=== PATIENT | female | born 1975 ===

== ENCOUNTER 2017-02-17 11:00 | Inpatient (IN) | payer SELFPAY ==
[~2017-02-17] VITALS: Ht 162.6 cm; Wt 81.0 kg
--- NOTE | ~2017-02-17 | HP ---
PATIENT'S NAME: LILIBETH CIFUENTES [facility] AGE: 41 Y [address] ROOM: [id number] [place], [place] [address] LOCATION: [facility] ADMIT DATE: 02/17/2017 History & Physical DISCHARGE DATE: FAMILY PHYSICIAN: PHYSICIAN, UNKNOWN ATTENDING PHYSICIAN: AMY SMITH DATE OF SERVICE: HISTORY OF PRESENT ILLNESS: This is a 41-year-old female with no past medical history per patient, who does not take any medications, who is a transfer from another facility, [facility], with altered mental status there. There, she was apparently found down by her roommate this morning with decreased responsiveness. She was found down on the floor face down with an eye laceration and unresponsive. She was breathing and had a pulse, just not responsive. EMS reportedly initially had blood pressure of 80 systolic and heart rate of 140s. They noted unequal pupils in the helicopter with concern for a stroke. Upon arrival at [facility], the patient's vitals improved with heart rate of 80s to 90s, blood pressure was better at 120s/70s. She was lethargic, snoring respirations, but would open her eyes to command and moving all extremities. They did a urine drug screen that came back positive for benzodiazepine and TCA, so flumazenil was given twice and the patient became much more responsive and became very agitated and so Haldol was given; however, she was found to be hypothermic with temperature of 89 and she required a warming blanket, a Kristin Hugger. A CT head was done including a CT facial bones and a CT cervical spine and a chest x-ray was done, which was all within normal limits. A UA was also done, which did not show any bacteria, negative nitrite, negative leukocytes, negative wbc. At the time of my examination, the patient is sleeping, drowsy, but wakes up to questions. She is oriented to time, place, and person. She states that she only took Tylenol PM last night. She left the house, but does not remember exactly what happened. An EKG was also done there, I do not have the EKG here, however, from sign-out that her EKG appears to be within normal limits, only mild prolongation of the QTc. Again, she denies any drug abuse. She states that she only took Tylenol PM last night. She states that she just left the house and she felt like she fell forward. Otherwise, she has some pain on the left eye, but denies any fevers, chills, shortness of breath, chest pain, nausea, vomiting, bowel or urinary changes. No abdominal pain as such. REVIEW OF SYSTEMS: Negative as per HPI. PAST MEDICAL HISTORY: No past medical history. PATIENT'S NAME: LILIBETH CIFUENTES [facility] AGE: 41 Y [address] [id number] [address] LOCATION: [facility] ADMIT DATE: 02/17/2017 History & Physical DISCHARGE DATE: FAMILY PHYSICIAN: PHYSICIAN, UNKNOWN ATTENDING PHYSICIAN: AMY SMITH MEDICATIONS: The patient states that she does not take any medications. FAMILY HISTORY: The patient states that she has unknown family history. SOCIAL HISTORY: The patient states that she does not drink any alcohol. She does state that she does smoke. ALLERGIES: SHE HAS NO KNOWN ALLERGIES. PHYSICAL EXAMINATION: VITAL SIGNS: The patient's temperature here is 97.2, pulse is 88, blood pressure 130s/80s, and saturating 96% on room air. GENERAL: Again, the patient is alert, she is drowsy, she is irritable when she is awake. She is otherwise in no acute distress. She is oriented to time, place, and person, you just need to wake her up. LUNGS: Lung sounds are diminished due to body habitus. No crackles, no wheezing present. HEART: Regular rate and rhythm and heart sounds. No murmurs. No rubs. ABDOMEN: Nontender. No guarding. No rigidity. No organomegaly. No pedal edema bilaterally. SKIN: There is some bruising on the left eye orbital area and there are also bilateral knee bruises present. NEUROLOGICAL: Again, she is oriented to time, place, and person. She is just very drowsy. She is grossly moving all extremities. PSYCHIATRIC: Unable to make decisions at this time. LABORATORY DATA: An alcohol level was not obtained at [facility], however, her TCA and benzo is positive in her urine. Her UA is negative for any bacteria, leukocyte, nitrites, or wbc. She has a CT head, CT facial maxilla, and also cervical spine and a chest x-ray, that was all negative. She has a mildly elevated D- dimer at 0.61. She has a mildly elevated CK-MB at 6.1, but she also has mildly elevated CK at 354. Acetaminophen level is negative. I do not see an EKG here, but per sign-out, that she has only mildly elevated QTc; otherwise, the rest of her CBC and CMP is benign. ASSESSMENT AND PLAN: 1. Acute encephalopathy could be secondary to benzodiazepine and TCA overdose, although, the patient denies. 2. Hypothermia, appears to be resolving. She is currently not on a bear hugger and her temperature is 97.2. PATIENT'S NAME: LILIBETH CIFUENTES [facility] AGE: 41 Y [address] ROOM: [place] [address] LOCATION: [facility] ADMIT DATE: 02/17/2017 History & Physical DISCHARGE DATE: FAMILY PHYSICIAN: PHYSICIAN, UNKNOWN ATTENDING PHYSICIAN: AMY SMITH 3. Left facial bruising and multiple bruises on the knees. Could be that she fell, however, all her CT scans are negative. 4. Mild elevated D-dimer. she is on room air. She is not tachypneic. She does not have any fevers. This could be just from her fall. We will obtain a venous duplex of bilateral extremities and rule this out. We will hydrate her with normal saline and D5 at 100 mL an hour. We will repeat an EKG to see if there is any worsening prolongation of QTc. We will obtain venous duplex of bilateral lower extremity. We will consult Psych when she is awake. Consult PT/OT. We will obtain an alcohol level and salicylate level. We will repeat a CBC and CMP in the morning. MD NICKO GUADARRAMA/amado /[id number] P D: [id number] T: [id number] HISTORY & PHYSICAL
--- NOTE | ~2017-02-17 | CON ---
PATIENT'S NAME: MAC CIFUENTES [facility] AGE: 41 Y [address] ROOM: [id number] [place], [place] [address] LOCATION: GICU ADMIT DATE: 02/17/2017 Consultation DISCHARGE DATE: FAMILY PHYSICIAN: PHYSICIAN, UNKNOWN ATTENDING PHYSICIAN: AMY SMITH DATE OF CONSULTATION: 02/18/2017 PSYCHIATRY CONSULTATION IDENTIFYING INFORMATION/REASON FOR CONSULTATION: Mac is a 41-year-old, white female, admitted to [facility] as a transfer from [place], admitted to us in altered mental status, and also suffered a fall subsequent to overdose on multiple medications. She has been medically stabilized. A QTc prolongation was noted. Imaging so far has not revealed any fractures or acute changes. CHIEF COMPLAINT: "I do not have anywhere to go." HISTORY OF PRESENT ILLNESS: Mac was evaluated. Visible swelling was noted on the face, not the most cooperative, but at the same time alert and oriented. Told me that her whereabouts which were correct. States that she has no prior history of any mental health treatment, but later contradicted herself by saying that she had overdosed on pills 2 years ago and "I was in a coma." About the incident had at this time, states that she has been living at [place] in [place] with Niles, who was a automobile radiator mechanic for the last 10 years. States that relationship was not going well. When asked about what does she recall about the overdose, states that she was by herself this past . It was on the afternoon and that was when she started taking those pills. I asked what did she take and responded "a little bit of this and little of that." States that the pills belonged to Niles and at that time, the intention was to end her life. States that she did not have anywhere to go. Has not been able to talk to Niles since then and made it sound like that the relationship in her opinion was completely done. Does not have any where else to go that she can think of. States that her father lives in [place] and then getting visibly agitated and overwhelmed, when pushed for more details. States that she does not want to end her life at this time. However acknowledged that when she is overwhelmed and frustrated that is where she looses control. Kept on repeating the intention was "as I did not have a place to go." States that she is doing well over here and does not want to go PATIENT'S NAME: MAC CIFUENTES [facility] AGE: 41 Y [address] ROOM: [id number] [place], [place] [address] LOCATION: GICU ADMIT DATE: 02/17/2017 Consultation DISCHARGE DATE: FAMILY PHYSICIAN: PHYSICIAN, UNKNOWN ATTENDING PHYSICIAN: AMY SMITH to inpatient facility for stabilization. Acknowledges that she does not have any plan or place to go which itself would be a trigger for her to repeat her actions. Not able to participate in a reasonable and the rationale way. PSYCHIATRIC HISTORY: Declines. MEDICAL HISTORY: No known medical history. Admitted status post multiple times on drug overdose. Had a fall and suffered soft-tissue injuries. Also history of being in a "coma" subsequent to when overdosed 2 years ago. PERSONAL SOCIAL HISTORY: Originally born in [place], [place]. States that she has been living with Niles who is a automobile radiator mechanic in the [place] for the last 10 years. Herself does not work. Talked about father being in [place], having another sister, but she is also not a resource at this time. MENTAL STATUS EXAMINATION: Lying in her bed. Physically uncomfortable. Talking about having some pain when touching her face, some visible swelling. Facial discoloration was noted. Able to understand questions and gave responses, but not the most elaborate, short and irritable. Aware that she was in [place] and that she came here yesterday. Able to tell me what the circumstances around the overdose that she had been asked by Niles to pack her bags and leave and she did not have any place to go at that time. States that the intent at that time was to end her life. Declines that now, but at the same time not able to problem solve. Acknowledges that she has nowhere to go and that she will go "somewhere." Fixated that she needs to go and get her stuff back from [place]. Denies any suicidal harm or intent. However, not processing the information in a well informed or a rationale way. Judgment and insight are clouded. DIAGNOSES: 1. Acute stress reaction. 2. Status post multiple drug overdoses. ASSESSMENT AND PLAN: At this time, it might be a day before she is medically cleared. Given the information that we have available, the clinical status, we recommend that she be transferred to [facility] after she is medically stable for further evaluation. Does have a history of serious overdose by her own account. Also not the most rationale and how she is processing the situation. Obviously engaged in something quite serious and the stressor which apparently was a trigger remained unresolved. States that at this time to her PATIENT'S NAME: MAC CIFUENTES [facility] AGE: 41 Y [address] ROOM: [id number] [place] [address] LOCATION: [facility] ADMIT DATE: 02/17/2017 Consultation DISCHARGE DATE: FAMILY PHYSICIAN: PHYSICIAN, UNKNOWN ATTENDING PHYSICIAN: AMY SMITH understanding she has no where to go which itself would put her at higher risk of repeating something like that. Would recommend that we consider her for EPC if she refuses to go to [facility] voluntarily, however, understands that the clinical status and the living situation might change once she is able to contact her significant other. Please call with concerns over here, but there were no behavioral problems and she is overall compliant with what we want her to be doing. MD MIGUEL KRISHNA/amado /[id number] d: [id number]/18/[id number] t: 02/21/17 1510, CONSULTATION REPORT
--- NOTE | ~2017-02-17 | ENPV ---
Vascular Lower Extremities DVT Study Procedure Demographics Patient Name LILIBETH CIFUENTES Date of Study 02/17/2017 Patient Number [id number] Gender Female Date of 1975 Age 41 Visit Number [id number] Height Accession Number [id number] Weight Room Number G6230 BSA BMI Referring Interpreting Lorna Saavedra MD Physician Physician Physician Ordering Physician Saloni Sheldon MD Straightening Machine Operator Heat Treatment Technician Dex Cook BS, RT Conclusions Summary TECHNIQUE: The veins of the lower extremities on the right and the left were evaluated from the groin to the ankle using trotter scale, compression, and augmentation. Venous hemodynamics were evaluated with color flow and spectral Doppler. FINDINGS: The deep veins of the legs bilaterally show normal color flow and compressibility without thrombosis. IMPRESSION: NEGATIVE BILATERAL LOWER EXTREMITY VENOUS DOPPLER. Procedure Type of Study: Veins:Lower Extremities DVT Study, Venous Duplex Lower Extremity Bilateral. Indications for Study:Swelling. Additional Indications:Hypothermia Appropriate Use Criteria:9 Patient Status:Routine. Study Location:Inpatient Portable. Technical Quality:Adequate visualization. Velocities are measured in cm/s ; Diameters are measured in cm Right Lower Extremities DVT Study Measurements Right 2D and Doppler Measurements + + + + +------+------+ + !Location !Visualized!Compressibility!Thrombosis!Signal!Reflux!Reflux ! ! ! ! ! ! ! !(sec) ! + + + + +------+------+ + !GSV Thigh !Yes !Yes !None !Phasic!No ! ! + + + + +------+------+ + !Common !Yes !Yes !None !Phasic!No ! ! !Femoral ! ! ! ! ! ! ! + + + + +------+------+ + !Prox !Yes !Yes !None !Phasic!No ! ! !Femoral ! ! ! ! ! ! ! + + + + +------+------+ + !Mid Femoral!Yes !Yes !None !Phasic!No ! ! + + + + +------+------+ + !Dist !Yes !Yes !None !Phasic!No ! ! !Femoral ! ! ! ! ! ! ! + + + + +------+------+ + !Popliteal !Yes !Yes !None !Phasic!No ! ! + + + + +------+------+ + !Gastroc !Yes !Yes !None !Phasic!No ! ! + + + + +------+------+ + !PTV !Yes !Yes !None !Phasic!No ! ! + + + + +------+------+ + !Peroneal !Yes !Yes !None !Phasic!No ! ! + + + + +------+------+ + Left Lower Extremities DVT Study Measurements Left 2D and Doppler Measurements + + + + +------+------+ + !Location !Visualized!Compressibility!Thrombosis!Signal!Reflux!Reflux ! ! ! ! ! ! ! !(sec) ! + + + + +------+------+ + !GSV Thigh !Yes !Yes !None !Phasic!No ! ! + + + + +------+------+ + !Common !Yes !Yes !None !Phasic!No ! ! !Femoral ! ! ! ! ! ! ! + + + + +------+------+ + !Prox !Yes !Yes !None !Phasic!No ! ! !Femoral ! ! ! ! ! ! ! + + + + +------+------+ + !Mid Femoral!Yes !Yes !None !Phasic!No ! ! + + + + +------+------+ + !Dist !Yes !Yes !None !Phasic!No ! ! !Femoral ! ! ! ! ! ! ! + + + + +------+------+ + !Popliteal !Yes !Yes !None !Phasic!No ! ! + + + + +------+------+ + !Gastroc !Yes !Yes !None !Phasic!No ! ! + + + + +------+------+ + !PTV !Yes !Yes !None !Phasic!No ! ! + + + + +------+------+ + !Peroneal !Yes !Yes !None !Phasic!No ! ! + + + + +------+------+ + Signature dtt: Abhijit Rothman dtd: 02/17/17 1538 Physician Self Edit
--- NOTE | ~2017-02-17 | DS ---
PATIENT'S NAME: LILIBETH CIFUENTES [facility] AGE: 41 Y [address] ROOM: [place] [address] LOCATION: [facility] [facility] ADMIT DATE: 02/17/2017 Discharge Summary DISCHARGE DATE: 02/19/2017 FAMILY PHYSICIAN: Physician, Unknown ATTENDING PHYSICIAN: Monalisa Guallpa ADMITTING DIAGNOSIS: Drug overdose. DISCHARGE DIAGNOSIS: Acute encephalopathy, secondary to drug overdose. SECONDARY DIAGNOSES: 1. Depression. 2. Possible suicidal attempt. 3. Hypertension. 4. Urinary tract infection. CONSULTATION: Psychiatry. HISTORY OF PRESENT ILLNESS: The patient is a 41-year-old female with no past medical history who was not on any medication and was transferred from another facility in [facility] with altered mental status. There, the patient was found by her roommate in the morning with decreased responsiveness. She was found down on the floor face down with eye laceration and unresponsiveness. She was breathing and had bowels. EMS was called. Initially, blood pressure was in the 80s and heart rates in the 140s. Upon arrival, assessment of the patient's vital signs improved with heart rate in the 80s and blood pressure to the 120s/70s. She was lethargic, snoring, no issues with respirations, would not open eyes to command, and moving all extremities. Urine drug screen was done and shows positive for benzodiazepine and TCA. Flumazenil was given twice and the patient became more responsive and became agitated and so Haldol was given. CT head done including CT facial bones and cervical spine and chest x-ray was done, which was unremarkable. The patient was transferred here for further care. HOSPITAL COURSE: The patient was admitted and was followed clinically. Serial EKG was done to monitor QTc and QRS. The patient mentation improved during her stay. On further investigation, the patient reports she took a few pills and were hesitant to answer whether this was to actually harm herself. Psychiatrist was called and the patient was evaluated and it was recommended to transfer the patient to [facility] for further workup of depression. CONDITION: Stable. DISPOSITION: [facility]. PATIENT'S NAME: LILIBETH CIFUENTES [facility] AGE: 41 Y [address] ROOM: [place] [address] LOCATION: [facility] [facility] ADMIT DATE: 02/17/2017 Discharge Summary DISCHARGE DATE: 02/19/2017 FAMILY PHYSICIAN: Physician, Unknown ATTENDING PHYSICIAN: Monalisa Guallpa DISCHARGE MEDICATIONS: 1. Levaquin 500 mg once a day for 3 days for UTI. 2. Amlodipine 5 mg everyday for hypertension. FOLLOWUP: Follow up care in [facility]. PHYSICAL EXAMINATION: VITAL SIGNS: Stable. HEAD: Normocephalic, atraumatic. CHEST: Clear to auscultation bilaterally. HEART: Regular rate and rhythm. No murmurs, rubs, or gallops. ABDOMEN: Soft and nondistended. Bowel sounds present. SALESPERSON HOSIERY: The patient is alert and oriented x3. Motor and sensory grossly intact. Less than 30 minutes was spent on discharge planning. DAGMAWE MD FARIDEH MARCOS/amado /[id number] d: 02/20/17 0039 t: 02/20/17 0941, DISCHARGE SUMMARY
--- NOTE | ~2017-02-17 | HP ---
PATIENT'S NAME: LILIBETH CIFUENTES [facility] AGE: 41 Y [address] ROOM: [address] [address] LOCATION: [facility] ADMIT DATE: 02/17/2017 History & Physical DISCHARGE DATE: FAMILY PHYSICIAN: PHYSICIAN, UNKNOWN ATTENDING PHYSICIAN: AMY SMITH DATE OF SERVICE: ADDENDUM ASSESSMENT AND PLAN: We will hydrate her with normal saline and D5 at 100 mL an hour. We will repeat an EKG to see if there is any worsening prolongation of QTc. We will obtain venous duplex of bilateral lower extremity. We will consult Psych when she is awake. Consult PT/OT. We will obtain an alcohol level and salicylate level. We will repeat a CBC and CMP in the morning. MD NICKO GUADARRAMA/amado /[id number] D: [id number] T: [id number] HISTORY & PHYSICAL
--- NOTE | 2017-02-17 14:27 | NUR ---
Patient is 41 yo female admitted from [facility] after she was found in the street face down. patient has 3 saline locks, one in each antecubital space and one in right inner wrist. all 3 are without erythema or edema noted at sites. patient is difficult to get any history from. she is groggy, will open eyes to name, try to answer but is difficulty to understand. when questions are re-asked of her she gets upset, but is easier understood. Education is not given at this time due to patient condition. pneumatics are on bilat calves. pt valeri well. yellow socks are on patient. call light is within reach.
[2017-02-17 16:06] LABS: HEMATOCRIT 37.2 % (33.0-46.0); HEMOGLOBIN 12.2 g/dL (10.0-15.0); MCH 31.5 pg (27.0-34.0); MCHC 32.8 gm/dL (32.0-36.5); MCV 96.1 fl (83.0-98.0); MPV 11.6 fl (9.4-12.4); RBC 3.87 M/uL (3.50-5.50); RDW-CV 14.4 % (11.9-14.6); WBC 7.7 K/uL (4.0-11.0)
[2017-02-17 16:25] LABS: ALBUMIN 2.8 gm/dL (3.5-5.0); ALK PHOS 40 IU/L (33-138); ALT 22 IU/L (12-78); AST 40 IU/L (10-40); BLOOD UREA NITROGEN 8 mg/dL (6-24); CALCIUM 7.8 mg/dL (8.5-10.5); CO2 19 mMol/L (22-32); CREATININE 0.5 mg/dL (0.5-1.1); MAGNESIUM 1.7 mg/dL (1.8-2.6); POTASSIUM 3.6 mMol/L (3.7-5.1); TOTAL BILIRUBIN 0.2 mg/dL (0.0-1.5); TOTAL PROTEIN 5.5 g/dL (6.0-8.4)
[2017-02-17 16:26] LABS: ANION GAP 9.6 (10.0-19.0); CHLORIDE 123 mMol/L (96-110); PHOSPHORUS 1.5 mg/dL (2.5-4.9); SODIUM 148 mMol/L (135-145)
--- NOTE | 2017-02-17 16:50 | NUR ---
Significant Event: PATIENT ARRIVED AT 1340 FROM [place], [place]. UPON ARRIVAL SHE IS VERY DROWSY BUT IRRITABLE. UNCOOPERATIVE AT TIMES. WHEN ASKED HER NAME SHE SAID WHY DO YOU NEED TO KNOW. SHE DID TELL ME SHE WAS FROM [place]. ON LAST ASSESSMENT PATIENT IS ALERT TO NAME AND MONTH. SHE DOES FOLLOW COMMANDS. MODERATE AND EQUAL STRENGTH. LEFT FOOT LOOKS LIKE FOOT DROP. TINGLING TO LOWER EXTREMITIES. VSS STABLE UPON ARRIVAL. TEMP WAS 97.4 AX BUT LAST WAS 98.7. PUPILS ARE 4MM BRISK. LUNGS CLEAR AND DIM ON ROOM AIR. ETCO2 MONITOR ON. UNABLE TO OBTAIN LAST BM. IS NOT REALLY ABLE TO TELL US MUCH HISTORY OR HER MEDS, SO THIS WILL NEED FOLLOWED UP ON WHEN MORE AWAKE. DENIES PAIN. FISHER INTACT DRAINING YELLOW URINE. PT/OT ORDER. I DID TRY CALLING DR SMITH TO REPORT EKG RESULTS AND ASK ABOUT A DIET. I AM WAITING HER TO CALL BACK. ALARMS ON FOR SAFETY. Follow up: NEURO STATUS. TEMP. FOLLOW UP ON ADMISSION THINGS.
[2017-02-17 17:37] LABS: PLATELET COUNT 86 K/uL (150-450)
[2017-02-17 17:39] LABS: ABSOLUTE NEUTROPHIL CT (ANC) 7.3 K/uL (1.8-7.8); BANDED NEUTROPHIL # 0.8 K/uL (0.0-0.1); BANDED NEUTROPHILS % 10 %; LYMPHOCYTE # 0.2 K/uL (0.8-4.0); LYMPHOCYTE % 3 %; MONOCYTE # 0.2 K/uL (0.0-1.0); SEGMENTED NEUTROPHIL # 6.6 K/uL (1.8-7.8); SEGMENTED NEUTROPHIL % 85 %
[2017-02-18 06:06] LABS: BASOPHIL % 0.4 %; EOSINOPHIL # 0.1 K/uL (0.0-0.5); EOSINOPHIL % 0.8 %; HEMATOCRIT 35.3 % (33.0-46.0); HEMOGLOBIN 11.2 g/dL (10.0-15.0); IMMATURE GRANULOCYTE % 0.3 %; LYMPHOCYTE # 1.1 K/uL (0.8-4.0); LYMPHOCYTE % 12.1 %; MCH 30.9 pg (27.0-34.0); MCHC 31.7 gm/dL (32.0-36.5); MCV 97.2 fl (83.0-98.0); MONOCYTE # 0.4 K/uL (0.0-1.0); MONOCYTE % 4.3 %; MPV 12.1 fl (9.4-12.4); NEUTROPHIL # (ANC) 7.5 K/uL (1.8-7.8); NEUTROPHIL % 82.1 %; NRBC % 0 /100WBC (0-0.00); RBC 3.63 M/uL (3.50-5.50); WBC 9.1 K/uL (4.0-11.0)
[2017-02-18 06:20] LABS: PLATELET COUNT 161 K/uL (150-450)
[2017-02-18 06:30] LABS: ALBUMIN 2.6 gm/dL (3.5-5.0); ALK PHOS 38 IU/L (33-138); ALT 22 IU/L (12-78); AST 39 IU/L (10-40); BLOOD UREA NITROGEN 7 mg/dL (6-24); CO2 19 mMol/L (22-32); POTASSIUM 3.2 mMol/L (3.7-5.1); TOTAL PROTEIN 5.3 g/dL (6.0-8.4)
[2017-02-18 06:31] LABS: ANION GAP 11.2 (10.0-19.0); CALCIUM 7.4 mg/dL (8.5-10.5); CHLORIDE 120 mMol/L (96-110); CREATININE 0.8 mg/dL (0.5-1.1); SODIUM 147 mMol/L (135-145)
[2017-02-18 06:32] LABS: TOTAL BILIRUBIN 0.3 mg/dL (0.0-1.5)
--- NOTE | 2017-02-18 06:35 | NUR ---
Significant Event: A/Ox3 throughout shift. Follows commands. Was drowsy on first assessment but alert the rest of the shift. Moderate strength throughout extremities. Activity as tolerated. Chanel catheter patent with 400ml output and concentrated urine. D51/2 NS at 100ml/hr through L)AC. Patient has c/o being very thirsty this shift. 900ml intake of water. Patient denies taking any home medications at home and denies any health problems. Temperatures stable throughout the night and overall patient has been calm and cooperative. Follow up:
--- NOTE | 2017-02-18 09:33 | NUR ---
PT SEEN D/T (+) MST. NO UNINTENDED WT LOSS. BME IN OBESE RANGE. NO NUTRITION-RELATED DX IDENTIFIED. WILL ASSIST NEEDED.
--- NOTE | 2017-02-18 18:12 | NUR ---
Significant Event: DROWSY, AWAKENS EASILY. ORIENTED X3. VSS, AFEBRILE, ROOM AIR. UP TO CHAIR WITH THERAPY, SLIGHTLY UNSTEADY. FISHER WITH 600 OUTPUT. GAVE PO & IV POTASSIUM AND IV MAGNESIUM, 2 EKGs DONE. IV SL. Follow up: PLANS TO INITIATE 1:1 RADIOLOGY ASSISTANT SUPERVISION. [facility] WILL HOLD BED FOR TRANSFER TOMORROW, PSYCH RECOMMENDS EPC IF PT NOT WILLING TO TRANSFER VOLUNTARILY.
--- NOTE | 2017-02-19 07:34 | NUR ---
Significant Event: The patient is Alert and Oriented x3. Denies Numbness and Tingling. Moves all extremities spontaneously and to command. Up with SBA, Gaitbelt. Upper extremities weak, lower extremities moderate strength. Chanel D'Cd, voiding post removal. Abrasions/bruising to all extremities. Bilateral eyes are swollen and crusty. PIV to the Left AC and Right Wrist saline locked. No complaints of pain. VSS. On room air. Decreased appetite. 1:1 sitter. Follow up: Transfer to [facility]?
[2017-02-19 10:52] LABS: BILIRUBIN URINE NEGATIVE (NEGATIVE); BLOOD URINE 50 /UL (NEGATIVE); COLOR URINE YELLOW (YELLOW); GLUCOSE URINE NEGATIVE (NEGATIVE); KETONE URINE 5 mg/dL (NEGATIVE); LEUKOCYTES URINE 25 /UL (NEGATIVE); NITRITE URINE NEGATIVE (NEGATIVE); PROTEIN URINE NEGATIVE (NEGATIVE); TURBIDITY URINE 2+ (CLEAR); UROBILINOGEN URINE 1 mg/dL (NORMAL)
[2017-02-19 11:02] LABS: AMORPHOUS URINE 2+ (NEGATIVE); BACTERIA URINE NEGATIVE (NEGATIVE); EPITHELIAL URINE 0-2 #/HPF (NEGATIVE); RBC URINE RARE #/HPF (NEGATIVE)
--- NOTE | 2017-02-19 13:06 | NUR ---
Significant Event: Patient alert and oriented X 3. Room air. SBP 170's and 150's. HR 80's and 60's. 1:1 sitter. Patient showered this shift. Retaining urine bladder scan read 589. Straight cathed and eliminated 200 ml. Up walking in the hallway with aide. Edema to orbital and abraision to upper right eyebrow. Abraisions to knees. Peripheral IV to L/AC flushes well with good blood return. Peripheral IV to R/forearm, flushes well with no blood return. Pleasant and cooperative with cares. Follow up:
[2017-02-19] MEDS ORDERED: NORVASC5 MG PO (15:03)
[2017-02-19] MEDS ORDERED: LEVAQUIN500 MG PO (15:03)
--- NOTE | 2017-02-19 15:22 | NUR ---
Patient discharged to [facility] via ambulance, discharge instructions given to patient and patient verbalized understanding of new medications and instructions. Report called by Liv Hutchinson.
== END 2017-02-19 15:18 | DRG 917 ==
LOC: GICU 13:35
PROVIDERS: Internal Medicine; ADMIT Hospitalist
DX: T42.4X2A Poisoning by benzodiazepines, intentional self-harm, initial encounter (principal); G92 Toxic encephalopathy; T68.XXXA Hypothermia, initial encounter; N39.0 Urinary tract infection, site not specified; T54.2X2A Toxic effect of corrosive acids and acid-like substances, intentional self-harm, initial encounter; S00.83XA Contusion of other part of head, initial encounter; S80.02XA Contusion of left knee, initial encounter; S80.01XA Contusion of right knee, initial encounter; W18.30XA Fall on same level, unspecified, initial encounter; F32.9 Major depressive disorder, single episode, unspecified; I10 Essential (primary) hypertension
CPT/HCPCS: G0480; J3475; J3480; J7042; J7050; J7060

== ENCOUNTER → 2017-02-19 | Outpatient (CLI) | payer SELFPAY ==
[~2017-02-19] MED LIST: LEVAQUIN500 MG PO; NORVASC5 MG PO
== END | disposition disaster alternative care site (69) ==
LOC: GAMB 15:24
DX: T14.91 Suicide attempt (principal); F32.9 Major depressive disorder, single episode, unspecified; T50.901A Poisoning by unspecified drugs, medicaments and biological substances, accidental (unintentional), initial encounter